=== PATIENT | male | born 1950 | race African-American/Black ===

== ENCOUNTER 2021-06-26 12:59 | Emergency (ER) | payer SELFPAY ==
[~2021-06-26] VITALS: Ht 170.2 cm; Wt 100.2 kg
[~2021-06-26 12:59] MED LIST: Z.0.ASPIRIN325 MG PO; Z.0.CLOPIDOGREL75 MG PO; Z.0.HYDROCHLOROTHIA2 PO; Z.0.LEVOTHYROXINE50 PO; Z.0.LISINOPRIL40 MG PO; Z.0.METOPROLOL TART5 PO; Z.0.SIMVASTATIN40 MG PO; Z.2.METFORMIN HCL500 PO
== END 2021-06-26 14:29 | disposition home or self-care (01) ==
LOC: ER 14:27
DX: E11.65 Type 2 diabetes mellitus with hyperglycemia (principal); I10 Essential (primary) hypertension; Z95.810 Presence of automatic (implantable) cardiac defibrillator
CPT/HCPCS: 36415; 82948; 99282